=== PATIENT | female | born 2000 | race Caucasian/White ===

== ENCOUNTER 2024-10-24 23:05 | Inpatient (IN) | payer MEDICAID ==
[~2024-10-24] VITALS: Ht 165.1 cm; Wt 105.2 kg
[~2024-10-24 23:05] MED LIST: PREN-88 PO
[2024-10-24 23:08] VITALS: O2SAT 98
[2024-10-24 23:40] LABS: BASOPHILS % 0.5 % (0.0-2.0); EOSINOPHILS % 1.4 % (0.0-5.0); HEMATOCRIT. 29.2 % (36.0-48.0); HEMOGLOBIN. 9.4 g/dL (12.0-16.0); LYMPHOCYTES % 29.8 % (20.0-50.0); MEAN PLATELET VOLUME 8.6 fl (7.4-10.4); MONOCYTES % 8.9 % (2.0-8.0); NEUTROPHILS % 59.4 % (40.0-76.0); PLATELET 223 x1000/uL (130-400); RED BLOOD CELL COUNT 4.29 mill/uL (4.2-5.4); RED CELL DISTRIBUTION WIDTH 15.6 % (11.6-14.6)
[2024-10-24 23:42] LABS: ADD RBC MORPHOLOGY YES
[2024-10-24] MEDS: KETOROLAC 15MG/ML VIAL IV ONE (23:42)
[2024-10-24] MEDS: SODIUM CHLORIDE 0.9% 1,000 ML IV ONE (23:43)
[2024-10-24 23:52] LABS: CREATININE 0.6 mg/dL (0.6-1.0); UREA NITROGEN BLOOD 18 mg/dL (9-23)
[2024-10-24 23:53] LABS: ETHANOL BLOOD < 10 mg/dL (<10)
[2024-10-24 23:54] LABS: ASPARTATE AMINOTRANSFERASE 26 IU/L (<34); BILIRUBIN DIRECT 0.2 mg/dL (<=3.0); HCG SCREEN NEGATIVE
[2024-10-24 23:55] LABS: BILIRUBIN TOTAL 0.6 mg/dL (0.1-1.0); PROTEIN TOTAL 7.1 g/dL (6.0-8.3)
[2024-10-25] VITALS (7 sets, daily range): BP systolic 114–125; BP diastolic 70–80; PULSE 70–81; RESP 18; TEMP 36.3–36.8; O2SAT 100
[2024-10-25 00:10] LABS: PLATELET ESTIMATE NORMAL
[2024-10-25] MEDS: MORPHINE SULFATE 4 MG/ML INJ (FOR IV/IM USE) IV ONE (01:42)
[2024-10-25 04:58] LABS: CLARITY URINE CLEAR (CLEAR); COLOR URINE YELLOW (YELLOW); GLUCOSE URINE NEGATIVE (NEGATIVE); KETONES URINE NEGATIVE (NEGATIVE); LEUKOCYTE ESTERASE URINE 3+ (NEGATIVE); NITRITE URINE NEGATIVE (NEGATIVE); OCCULT BLOOD URINE 3+ (NEGATIVE); PH URINE 7.5 (4.5-8.0); PROTEIN URINE NEGATIVE (NEGATIVE); SPECIFIC GRAVITY URINE 1.023 (1.005-1.030); UROBILINOGEN URINE 4.0 E.U./dL (0.2-1.0)
[2024-10-25 05:04] LABS: *AMPHETAMINES SCREEN URINE NEGATIVE (NEGATIVE); *BARBITURATES SCREEN URINE NEGATIVE (NEGATIVE); *BENZODIAZEPINES SCREEN URINE NEGATIVE (NEGATIVE); *COCAINE SCREEN URINE NEGATIVE (NEGATIVE); CANNABINOID URINE SCREEN NEGATIVE (NEGATIVE); ECSTASY MDMA SCREEN URINE NEGATIVE (NEGATIVE); METHADONE URINE SCREEN NEGATIVE (NEGATIVE); OPIATES URINE SCREEN PRESUMPTIVE POSITIVE (NEGATIVE); PHENCYCLIDINE URINE SCREEN NEGATIVE (NEGATIVE)
[2024-10-25] MEDS: HYDROCODONE/ACETAMINOPHEN 10/325MG TABLET PO PRN (05:14)
[2024-10-25 05:28] LABS: BACTERIA URINE 1+; SQUAMOUS EPITHELIAL CELL URINE 3+ /lpf (RARE/1+)
[2024-10-25] MEDS ORDERED: IBUP-2030 MT (06:06)
[2024-10-25] MEDS ORDERED: LEVOFLOXACIN 500MG PREMIX 100 ML IV SCH (08:15)
[2024-10-25] MEDS ORDERED: NALOXONE HCL 0.4MG/ML VIAL IV PRN (08:30)
[2024-10-25] MEDS: KETOROLAC 30MG/ML VIAL IV PRN (08:48)
[2024-10-25] MEDS: LEVOFLOXACIN 750MG PREMIX 150 ML IV SCH (09:00)
[2024-10-25] MEDS: DIPHENHYDRAMINE 50MG/ML VIAL IV PRN (10:30)
[2024-10-25] MEDS: DEXT 5%/0.45% NACL 1000ML 1,000 ML IV SCH (13:15)
[2024-10-25] MEDS: ONDANSETRON HCL 4MG/2ML INJ IV PRN (18:32)
[2024-10-26 08:00] VITALS: BP 113/76; PULSE 69; RESP 20; TEMP 36.5; O2SAT 100
[2024-10-26 12:00] VITALS: BP 109/51; PULSE 69; RESP 20; TEMP 36.3; O2SAT 100
[2024-10-26] MEDS ORDERED: DIPHENHYDRAMINE 50MG CAPSULE PO PRN (15:30)
[2024-10-26 16:00] VITALS: BP 121/82; PULSE 68; RESP 20; TEMP 36.4; O2SAT 100
== END 2024-10-26 17:44 | disposition short-term general hospital (02) ==
LOC: ER 23:05 → 6EST 10-25 02:07 → EDBEDREQ 10-25 02:11 → EDBEDREQTM 10-25 02:11 → ENRESERV 10-25 02:19
PROVIDERS: ADMIT Internal Medicine; ATTEND Internal Medicine
DX: K80.60 Calculus of gallbladder and bile duct with cholecystitis, unspecified, without obstruction (principal); E66.9 Obesity, unspecified; Z68.38 Body mass index [BMI] 38.0-38.9, adult
CPT/HCPCS: 36415; 74176; 74181; 76705; 80048; 80076; 80305; 80320; 81003; 84703; 85025; 87077; 87186; 96361; 96374; 96375; 99285; J1200; J1885; J1956; J2270; J2405; J7030; G0480